=== PATIENT | female | born 1980 | race American Indian/Alaskan Native ===

== ENCOUNTER → 2024-02-09 11:44 | Outpatient (REF) | payer OTHER, SELFPAY | LOC: WDC 11:44 | PROVIDERS: ATTENDING PHYSICIAN Internal Medicine | DX: Z12.31 Encounter for screening mammogram for malignant neoplasm of breast (principal) | CPT/HCPCS: 77063; 77067 ==

== ENCOUNTER → 2025-03-16 09:54 | Outpatient (REF) | payer OTHER, SELFPAY | LOC: WDC 09:54 | PROVIDERS: ATTENDING PHYSICIAN Family Medicine | DX: Z12.31 Encounter for screening mammogram for malignant neoplasm of breast (principal) | CPT/HCPCS: 77063; 77067 ==